=== PATIENT | male | born 1975 | race Caucasian/White ===

== ENCOUNTER 2017-09-20 13:33 | Emergency (ER) | payer OTHER ==
[~2017-09-20] VITALS: Ht 182.9 cm; Wt 97.9 kg
[2017-09-20 13:35] VITALS: BP 141/95
[2017-09-20] MEDS ORDERED: ALBUTEROL/IPRATROPIUM 2.5MG/0.5MG, 3 ML NPPB PRN (14:00)
[2017-09-20] MEDS ORDERED: ALBUTEROL/IPRATROPIUM 2.5MG/0.5MG, 3 ML ONE (14:38)
== END 2017-09-20 15:05 | disposition home or self-care (01) ==
LOC: ED 14:50
DX: J20.8 Acute bronchitis due to other specified organisms (principal); B96.89 Other specified bacterial agents as the cause of diseases classified elsewhere; J32.9 Chronic sinusitis, unspecified; F17.200 Nicotine dependence, unspecified, uncomplicated
CPT/HCPCS: 71046; 94640; 99284; J7620